=== PATIENT | male | born 1945 | race Caucasian/White ===

== ENCOUNTER → 2016-07-07 | Outpatient (CLI) | payer MEDICARE, OTHER ==
[~2016-07-07] MED LIST: ALBUTEROL2.5 MG/0.5 INH; AMLODIPINE BESYL5 MG PO; ANTACID II-SIM360 ML PO; BACLOFEN IV; BACLOFEN SUB-Q; BIPAP INH; CEFTIN250 MG PO; COLACE100 MG PO; COQ-1030 MG PO; COREG 3.1253.125 MG PO; COUMADIN ** IA3 MG PO; COUMADIN ** IA5 MG PO; COUMADIN **IA1 MG PO; DELTASONE10 MG PO; DEPO TESTOS200 MG/ML IM; DULCOLAX5 MG PO; ELAVIL50 MG PO; FENTANYL 050 MCG/11 SUB-Q; FENTANYL IV; FERROUS SU220 MG/5 M PO; FLOMAX0.4 MG PO; HYDRODIURIL25 MG PO; HYZAAR 100-251 EACH PO; JEVITY 1 CAL1500 ML; JEVITY FT; K-TAB 10MEQ10 MEQ PO; KEFLEX500 MG PO; LACTINEX (FLORA1 TAB PO; LASIX20 MG PO; LEVAQUIN 750 M750 MG PO; LEVOTHROID (S112 MCG PO; LOVENOX 8080 MG/0.8 SUB-Q; LOVENOX150 MG/1 M SUB-Q; NASACORT16.9 ML NOSE; NASONEX17 GM NOSE; OXYGEN INH; OXYGEN M-15; OXYGEN M-15 NS; PERCOCET 10-321 EACH PO; PERCOCET 7.5-31 EACH PO; PREVACID15 MG PO; PRIALT SUB-Q; PROAIR HFA8.5 GM INH; PROCARDIA XL30 MG PO; PROCARDIA XL90 MG PO; REFRESH CLASSI1 EACH OPHTH; TEARGEN1 BOT OPHTH; THERA-VITE W/ B1 TAB PO; TYLENOL325 MG PO; VALIUM5 MG PO; VESICARE5 MG PO
== END | disposition disaster alternative care site (69) ==
LOC: GRAD 16:15
DX: Z48.89 Encounter for other specified surgical aftercare (principal)